=== PATIENT | male | born 1960 | race Two or more races ===

== ENCOUNTER 2022-08-24 12:15 | Inpatient (IN) | payer OTHER ==
[~2022-08-24] VITALS: Ht 175.3 cm; Wt 83.9 kg
[2022-08-24] MEDS ORDERED: AVAPRO300 MG PO (13:08)
[2022-08-24] MEDS ORDERED: CLONAZEPAM1 MG PO (13:09)
[2022-08-24] MEDS ORDERED: WELLBUTRIN XL300 MG PO (13:10)
[2022-08-24] MEDS ORDERED: ESTAZOLAM2 MG PO (13:10)
[2022-08-28] MEDS ORDERED: PERCOCET 5-3251 EACH PO (07:36)
[2022-08-28] MEDS ORDERED: MEDROLPACK PO (07:36)
[2022-08-28] MEDS ORDERED: COLACE100 MG PO (07:36)
== END 2022-08-30 00:08 | disposition home or self-care (01) | DRG 472 ==
LOC: O/R 08-28 04:40 → SURH 08-28 04:40
PROVIDERS: ADMIT Orthopaedic Surgery Orthopaedic Surgery of the Spine; ATTEND Orthopaedic Surgery Orthopaedic Surgery of the Spine
PROC: 0RT30ZZ Resection of Cervical Vertebral Disc, Open Approach (ICD-10-PCS; 2022-08-28)
PROC: 0PB30ZZ Excision of Cervical Vertebra, Open Approach (ICD-10-PCS; 2022-08-28)
PROC: 07DS0ZZ Extraction of Vertebral Bone Marrow, Open Approach (ICD-10-PCS; 2022-08-28)
PROC: 0RG20A0 Fusion of 2 or more Cervical Vertebral Joints with Interbody Fusion Device, Anterior Approach, Anterior Column, Open Approach (ICD-10-PCS; principal; 2022-08-28 07:00)
DX: M50.022 Cervical disc disorder at C5-C6 level with myelopathy (principal); M47.12 Other spondylosis with myelopathy, cervical region; I10 Essential (primary) hypertension